=== PATIENT | female | born 1980 | race American Indian/Alaskan Native ===

== ENCOUNTER 2017-01-04 10:04 | Outpatient (CLI) | payer MEDICAID, OTHER ==
[2017-01-04 11:14] VITALS: BP 128/75
[2017-01-04] MEDS ORDERED: VISTARIL PO NR (11:22)
== END 2017-01-04 11:50 | disposition home or self-care (01) ==
LOC: TRG 10:04 → LD 10:05 → TRG 11:50
PROVIDERS: ATTEND Obstetrics & Gynecology Gynecology
DX: O09.523 Supervision of elderly multigravida, third trimester (principal); O47.1 False labor at or after 37 completed weeks of gestation; Z3A.38 38 weeks gestation of pregnancy
CPT/HCPCS: Q0177

== ENCOUNTER 2017-01-21 08:27 | Inpatient (IN) | payer OTHER ==
--- NOTE | 2017-01-21 09:02 | History and Physical Report ---
History of Present Illness Date of examination: 01/21/17 Date of admission: 01/21/17 08:27 Chief complaint: Here for induction of labor History of present illness: 36-year-old at 41+2 weeks presents for induction of labor, she is a [facility] patient. She is GBS positive. course complicated by elevated 1 hour GTT, patient no show for 3 hour GTT. She has a history of delivering large babies, her last delivery was of a 9 lbs. 9 oz. infant. I have an oral history from the clinic of ultrasound week ago showing a ~ 7 pound . No official report available. 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 denies: smoking, alcohol abuse, prescription drug abuse, IV drug use - Obstetrical History Expected Date of Delivery: 01/12/17 Actual Gestation: 41 Week(s) 2 Day(s) : 11 Para: 10 Number of Living Children: 9 (s/p IUFD) Medications and Allergies Allergies Allergy/AdvReac Type Severity Reaction Status Date / Time morphine Allergy Itching Verified 11/28/15 21:28 Home Medications Medication Instructions Recorded Confirmed Last Taken Type Ferrous Sulfate [Feosol 325 MG tab] 325 mg PO BID #60 tablet 12/01/15 Unknown Rx Ibuprofen [Motrin 600 MG tab] 600 mg PO Q6H #30 tablet 12/01/15 Unknown Rx Vit-Fe Fumar-FA [ 1 each PO QDAY #30 tablet 12/01/15 Unknown Rx Vitamin] Review of Systems Constitutional: no fever, no chills, no night sweats, no fatigue Cardiovascular: no chest pain, no orthopnea, no syncope, no lightheadedness, no shortness of breath, no dyspnea on exertion, no paroxysmal nocturnal dyspnea, no high blood pressure Respiratory: no excessive sputum, no shortness of breath, no dyspnea on exertion Gastrointestinal: abdominal pain, no nausea, no vomiting, no diarrhea, no hematemesis, no heartburn Genitourinary: contractions, no vaginal bleeding, no vaginal discharge, no leakage of fluid - Physical Exam Cardiovascular: Regular rate, Normal S1, Normal S2 Lungs: Positive: Clear to auscultation, Normal air movement Abdomen: Positive: normal appearance, soft. Negative: distention, tenderness, guarding, rigidity Genitourinary (Female): Positive: normal external genitalia Vulva: both: normal Uterus: Positive: enlarged (Limited due to Habitus). Negative: tender Adnexa: both: normal Extremities: Positive: normal - Obstetrical FHR: category 1 Cervical Dilatation: 5 Cervical Effacement Percentage: 80 station: -3 Results All other labs normal. Assessment and Plan A: 36-year-old at 41+2 wks in active labor -Cat 1 tracing P: -Admit -Obtain growth scan -Epidural when necessary -Disposition after result - Patient Problems (1) 41 weeks gestation of Current Visit: Yes Status: Acute (2) Grand multipara in labor Current Visit: Yes Status: Acute Qualifiers: Trimester: T (3) Non-compliance with treatment Current Visit: Yes Status: Acute
[2017-01-21] MEDS ORDERED: METHERGINE IM ONE (10:00)
[2017-01-21] MEDS ORDERED: ePHEDrine SULFATE IV PRN (10:00)
[2017-01-21] MEDS ORDERED: PITOCin/NS 30 UNIT/500ML 30 UNITS/500 ML BAG IV SCH (10:00)
[2017-01-21] MEDS ORDERED: MINERAL OIL PO PRN (10:00)
[2017-01-21] MEDS ORDERED: BRETHINE SUB-Q PRN (10:00)
[2017-01-21] MEDS ORDERED: PITOCin/NS 20 UNIT/1000ML DRIP 20 UNITS/1,000 ML BAG IV SCH ×2 (10:00→13:00)
[2017-01-21] MEDS ORDERED: CYTOTEC ONE (10:00)
[2017-01-21] MEDS ORDERED: PHENERGAN PO PRN ×2 (10:00→12:26)
[2017-01-21] MEDS ORDERED: POLYCILLIN/NS 2 GM/100 ML 2 GM/100 ML BAG IV ONE (10:00)
[2017-01-21] MEDS ORDERED: BRETHINE IVP PRN (10:00)
[2017-01-21] MEDS ORDERED: ZOFRAN IV PRN ×2 (10:00→12:26)
[2017-01-21] MEDS ORDERED: XYLOCAINE 2% INFILTRATI ONE (10:00)
[2017-01-21] MEDS ORDERED: LACTATED RINGERS 1,000 ML IV SCH (10:00)
[2017-01-21 10:11] LABS: Hematocrit 34.7 % (30.3-42.9); Hemoglobin 11.3 gm/dl (10.1-14.3); Mean Corpuscular HGB Conc 33 % (30-34); Mean Corpuscular Volume 75 fl (79-97); Platelet Count 240 K/mm3 (140-440); Red Cell Distribution Width 18.8 % (13.2-15.2); White Blood Count 10.8 K/mm3 (4.5-11.0)
[2017-01-21] MEDS: PITOCin/NS 30 UNIT/500ML 30 UNITS/500 ML BAG IV SCH ×2 (10:22→11:22)
[2017-01-21 10:44] LABS: Mean Corpuscular Hemoglobin 25 pg (28-32)
--- NOTE | 2017-01-21 11:28 | Ultrasound Report ---
OB ULTRASOUND History: Macrosomia, well being. Technique: Transabdominal ultrasound with Doppler interrogation. Gestation: Single Position: Cephalic Amniotic Fluid: Normal CHHAYA = 17.3 cm Heart Rate: 137 BPM BPD: 8.9 cm = 35 w 6 d HC: 33.7 cm = 38 w 5 d AC: 34.8 cm = 38 w 5 d FL: 7.2 cm = 37 w 0 d HC/AC Ratio: 0.97 Cephalic Index: 81.8 Estimated Weight: 3357 grams Clinical age = 41 w 2 d EDC: 01/12/17 US Gest. Age = 37 w 4 d EDC: 02/07/17
[2017-01-21] MEDS ORDERED: SUBLIMAZE ONE (11:50)
[2017-01-21] MEDS ORDERED: CYTOTEC VG ONE (12:00)
--- NOTE | 2017-01-21 12:24 | Procedure Note ---
OB Delivery Note - Delivery Date of Delivery: 01/21/17 Surgeon: RUBÉN GERMAIN Estimated blood loss: 300cc - Vaginal Delivery presentation: vertex Delivery position: OA Intrapartum events: meconium, precipitous labor- <3hr Delivery induction: none Delivery monitor: external FHT, external uterine Route of delivery: Delivery placenta: spontaneous Delivery cord: 3 umbilical vessels Episiotomy: none Delivery laceration: 1st degree (not bleeding, not repaired per maternal request ) Anesthesia: none - A at 1 minute: 8 at 5 minutes: 9 Gender: Female (time of delivery 1202, infant weight 7 lbs. 14 oz. or 3567 g)
[2017-01-21] MEDS ORDERED: CYTOTEC PR ONE (12:26)
[2017-01-21] MEDS ORDERED: LANSINOH TP PRN (12:26)
[2017-01-21] MEDS ORDERED: TYLENOL PO PRN (12:26)
[2017-01-21] MEDS ORDERED: METHERGINE IM PRN (12:26)
[2017-01-21] MEDS ORDERED: MILK OF MAGNESIA PO PRN (12:26)
[2017-01-21] MEDS ORDERED: DULCOLAX PR PRN (12:26)
[2017-01-21] MEDS ORDERED: BENADRYL PO PRN (12:26)
[2017-01-21] MEDS ORDERED: TUCKS PAD TP PRN (12:26)
[2017-01-21] MEDS ORDERED: ANUCORT-HC PR PRN (12:26)
[2017-01-21] MEDS ORDERED: PHENERGAN PR PRN (12:26)
[2017-01-21] MEDS ORDERED: SENOKOT S PO SCH (13:00)
[2017-01-21] MEDS ORDERED: MOTRIN PO SCH (13:00)
[2017-01-21] MEDS ORDERED: SODIUM CHLORIDE FLUSH SYRINGE 10 ML IV NR (13:00)
[2017-01-21] MEDS ORDERED: POLYCILLIN/NS 1 GM/50 ML 1 GM/50 ML BAG IV SCH (14:00)
[2017-01-21] MEDS: NORCO 5/325 PO PRN ×2 (15:33→21:35)
[2017-01-21] MEDS: MOTRIN PO SCH ×2 (15:43→21:35)
[2017-01-21] MEDS: FEOSOL PO SCH (21:34)
[2017-01-21] MEDS: COLACE PO SCH (21:35)
[2017-01-22 01:18] LABS: Hematocrit 29.5 % (30.3-42.9); Hemoglobin 9.6 gm/dl (10.1-14.3)
[2017-01-22] MEDS ORDERED: BOOSTRIX IM ONE (06:00)
[2017-01-22] MEDS: MOTRIN PO SCH ×2 (06:01→17:03)
--- NOTE | 2017-01-22 06:34 | Progress Note ---
Assessment and Plan PPD# 1 s/p -Doing well P: -Continue routine care -Anticipate discharge in 24-48 hours - Patient Problems (1) 41 weeks gestation of Current Visit: Yes Status: Acute (2) Grand multipara in labor Current Visit: Yes Status: Acute Qualifiers: Trimester: T (3) Non-compliance with treatment Current Visit: Yes Status: Acute Subjective - Subjective Date of service: 01/22/17 Principal diagnosis: PPD# 1 Interval history: Patient seen and examined, stable doing well no issues Patient reports: appetite normal, voiding normally, pain well controlled, ambulating normally, no dizzy ambulation, no nauseated : doing well Objective - Vital Signs Latest vital signs: Vital Signs Temp Pulse Resp BP BP Pulse Ox 01/22/17 00:20 97.6 F 61 16 109/65 01/21/17 20:55 97.6 F 50 L 114/71 01/21/17 17:00 98.2 F 86 16 126/73 93 01/21/17 15:43 20 01/21/17 15:33 20 01/21/17 14:15 98.8 F 76 20 127/83 01/21/17 13:56 72 135/76 01/21/17 13:44 75 130/60 01/21/17 13:29 57 L 18 122/62 122/62 01/21/17 13:22 68 18 125/72 125/72 01/21/17 12:59 80 127/83 01/21/17 12:58 80 18 127/83 01/21/17 12:44 80 18 131/86 131/86 01/21/17 12:29 71 113/66 01/21/17 10:29 98.5 F 01/21/17 09:52 123/79 01/21/17 09:34 83 123/79 Intake and Output 01/21/17 01/21/17 01/22/17 14:59 22:59 06:59 Intake Total 120 180 Balance 120 180 Intake: Intake, Free Water 120 180 Other: # Voids Void 1 800 Weight 105.687 kg Estimated Blood Loss 300 Patient Weight 01/22/17 06:59 Weight 105.687 kg - Exam Abdomen: Present: normal appearance, soft. Absent: distention, tenderness, guarding Uterus: Present: fundal height below umbilicus. Absent: tenderness Extremities: Present: normal - Labs Labs: Abnormal lab results 01/21/17 01/22/17 Range/Units 09:50 00:39 Hgb 9.6 L (10.1-14.3) gm/dl Hct 29.5 L (30.3-42.9) % MCV 75 L (79-97) fl MCH 25 L (28-32) pg RDW 18.8 H (13.2-15.2) %
--- NOTE | 2017-01-22 06:35 | Discharge Summary ---
Providers - Providers Date of Admission: 01/21/17 08:27 Date of discharge: 01/23/17 Attending physician: RUBÉN GERMAIN Primary care physician: RUBÉN GERMAIN Hospitalization Reason for admission: active labor, induction of labor Delivery: Episiotomy: none Laceration: 1st degree Other procedures: none complications: none Discharge diagnosis: IUP at term delivered baby: female Condition at discharge: Good Disposition: DC-01 TO HOME OR SELFCARE - Discharge Diagnoses (1) (normal spontaneous vaginal delivery) Status: Acute (2) 41 weeks gestation of Status: Acute (3) Grand multipara in labor Status: Acute Qualifiers: Trimester: T (4) Non-compliance with treatment Status: Acute Plan - Discharge Medications Prescriptions: Ibuprofen [Motrin 600 MG tab] 600 mg PO Q8H PRN #30 tablet PRN Reason: Pain Multivitamin with Iron [Multivitamins with Iron] 1 each PO DAILY #30 tablet - Provider Discharge Summary Activity: no sex for 6 weeks, no heavy lifting 4 weeks, no strenuous exercise Diet: routine Additional instructions: [] Smoking cessation referral if applicable(refer to patient education folder for contact #) [] Refer to [facility]'s [facility] Booklet Call your doctor immediately for: * Fever > 100.5 * Heavy vaginal bleeding ( >1 pad per hour) * Severe persistent headache * Shortness of breath * Reddened, hot, painful area to leg or breast * Drainage or odor from incision. * Keep incision clean and dry at all times and follow doctor's instructions regarding bathing/showering - Follow up plan Follow up: RUBÉN GERMAIN MD [Primary Care Provider] - 6 Weeks
[2017-01-22] MEDS: COLACE PO SCH ×2 (09:16→22:34)
[2017-01-22] MEDS: FEOSOL PO SCH ×2 (09:17→22:34)
[2017-01-22] MEDS: PRENATAL VITAMIN PO SCH (09:17)
[2017-01-22] MEDS ORDERED: Fluarix Quad 2017-2018(36 MOS+) IM ONE (12:00)
[2017-01-22] MEDS: NORCO 5/325 PO PRN (22:34)
[2017-01-23] MEDS: MOTRIN PO SCH ×2 (02:15→09:30)
[2017-01-23] MEDS: PRENATAL VITAMIN PO SCH (09:30)
[2017-01-23] MEDS: FEOSOL PO SCH (09:30)
[2017-01-23] MEDS: COLACE PO SCH (09:30)
[2017-01-23] MEDS: NORCO 5/325 PO PRN (09:31)
[2017-01-23 14:13] VITALS: BP 130/79
== END 2017-01-23 15:30 | disposition home or self-care (01) | DRG 775 ==
LOC: LD 08:27 → OB 14:14
PROVIDERS: ADMIT Obstetrics & Gynecology Gynecology; ATTEND Obstetrics & Gynecology Gynecology
PROC: 10E0XZZ Delivery of Products of Conception, External Approach (ICD-10-PCS; principal; 2017-01-21)
PROC: 3E0234Z Introduction of Serum, Toxoid and Vaccine into Muscle, Percutaneous Approach (ICD-10-PCS; 2017-01-22)
DX: O77.0 Labor and delivery complicated by meconium in amniotic fluid (principal); O62.3 Precipitate labor; O48.0 Post-term pregnancy; Z3A.41 41 weeks gestation of pregnancy; Z37.0 Single live birth; O70.0 First degree perineal laceration during delivery; Z91.19 Patient's noncompliance with other medical treatment and regimen; O99.824 Streptococcus B carrier state complicating childbirth; Z23 Encounter for immunization
CPT/HCPCS: 36415; 76816; 85014; 85018; 85027; 86592; 86706; 86762; 86850; 86900; 86901; 90471; 90715; J0290; J2210; J2590; J3010; J7120; Q0169

== ENCOUNTER 2017-03-09 11:20 | Day surgery (SDC) | payer OTHER ==
[~2017-03-09 11:20] MED LIST: LACTATED RINGERS 1,000 ML IV SCH; PEPCID PO NR; REGLAN PO NR; VERSED IV NR
--- NOTE | 2017-03-09 12:23 | Short Stay Summary ---
Short Stay Documentation Date of service: 03/09/17 Narrative H&P: Pt is a 36yo BF S/P 01/21/17 presents for permanent sterilization. No complaints. - History Principal diagnosis: Desires permanent sterilization H&P: obtained from office Past Medical History: No medical history Past Surgical History: Other (breast reduction) Social history: no significant social history, single - Allergies and Medications Current Medications: Allergies morphine Allergy (Verified 11/28/15 21:28) Itching Home Medications Medication Instructions Recorded Confirmed Last Taken Type No Known Home Medications [No 03/06/17 03/06/17 Unknown History Reported Home Medications] Active Medications Famotidine (Pepcid) 20 mg PO PREOP NR Stop: 03/09/17 15:00 Lactated Ringer's (Lactated Ringers) 1,000 mls @ 75 mls/hr IV DIRECT DAVID Cefazolin Sodium (Ancef/Sterile Water 2 Gm/20 Ml) 2 gm in 20 mls @ 80 mls/hr IV PREOP NR PRN Reason: Protocol Metoclopramide HCl (Reglan) 10 mg PO PREOP NR Stop: 03/09/17 15:00 Midazolam HCl (Versed) 2 mg IV PREOP NR Stop: 03/09/17 23:59 - Physical exam General appearance: no acute distress Integumentary: no rash HEENT: Atraumatic Lungs: Clear to auscultation Breasts: deferred Heart: Regular rate Gastrointestinal: normal Female Genitourinary: deferred Rectal Exam: deferred Extremities: no ischemia, No edema Neurological: Normal gait, Normal speech - Brief post op/procedure progress note Date of procedure: 03/09/17 Pre-op diagnosis: Desires permanent sterilization Post-op diagnosis: same Procedure: Laproscopic Bilateral Tubal Ligation Anesthesia: GETA Findings: Normal uterus. Normal tubes and ovaries bilaterally. Surgeon: MILDRED LAINEZ Estimated blood loss: minimal Pathology: none Condition: stable - Hospital course Hospital course: Unremarkable. - Disposition Condition at discharge: Good Disposition: DC-01 TO HOME OR SELFCARE - Discharge Diagnoses (1) Consultation for sterilization Status: Resolved Short Stay Discharge Plan Activity: no restrictions Diet: regular Wound: open to air, keep clean and dry Follow up with: RUBÉN GERMAIN MD [Primary Care Provider] - 7 Days MILDRED LAINEZ MD [Staff Physician] - 14 Days Prescriptions: HYDROcodone/APAP 5-325 [[place] 5/325] 1 each PO Q6HR PRN #20 tablet PRN Reason: Pain
--- NOTE | 2017-03-09 12:58 | Anesthesia Consultation ---
Anesthesia Consult and Med Hx Date of service: 03/09/17 - Airway Anesthetic Teeth Evaluation: Good, Partials Mental/Hyoid Distance: Adequate Mallampati Class: Class II Intubation Access Assessment: Good - Pulmonary Exam CTA: Yes - Cardiac Exam Cardiac Exam: RRR - Pre-Operative Health Status ASA Pre-Surgery Classification: ASA1 Proposed Anesthetic Plan: General - Pre-Anesthesia Comment Pre-Anesthesia Comments: one lower molar is broken - Pulmonary Hx Asthma: No COPD: No Hx Pneumonia: No - Cardiovascular System Hx Hypertension: No - Central Nervous System Hx Seizures: No Hx Psychiatric Problems: No - Endocrine Hx Renal Disease: No Hx End Stage Renal Disease: No Hx Hypothyroidism: No Hx Hyperthyroidism: No - Hematic Hx Anemia: No Hx Sickle Cell Disease: No - Other Systems Hx Alcohol Use: No Hx Cancer: No
--- NOTE | 2017-03-09 12:58 | Anesthesia Day of Surgery ---
Anesthesia Day of Surgery - Day of Surgery Patient Examined: Yes Patient H&P Reviewed: Yes Patient is NPO: Yes
[2017-03-09] MEDS ORDERED: DILAUDID IV PRN (12:59)
[2017-03-09] MEDS ORDERED: ZOFRAN IV PRN (12:59)
[2017-03-09] MEDS ORDERED: ANCEF/STERILE WATER 2 GM/20 ML 2 GM/20 ML SYRINGE IV NR (13:00)
[2017-03-09] MEDS ORDERED: PERCOCET 5/325 PO PRN (13:02)
[2017-03-09 13:29] LABS: Hemoglobin 11.4 gm/dl (10.1-14.3); Mean Corpuscular HGB Conc 32 % (30-34); Mean Corpuscular Volume 75 fl (79-97); Platelet Count 238 K/mm3 (140-440); Red Blood Count 4.78 M/mm3 (3.65-5.03); White Blood Count 7.7 K/mm3 (4.5-11.0)
[2017-03-09 13:30] LABS: Mean Corpuscular Hemoglobin 24 pg (28-32); Red Cell Distribution Width 20.1 % (13.2-15.2)
[2017-03-09] MEDS ORDERED: MARCAINE 0.5% 30 ML INFILTRATI ONE (14:27)
[2017-03-09] MEDS ORDERED: DILAUDID ONE (14:30)
[2017-03-09] MEDS ORDERED: XYLOCAINE MPF 2% ONE (14:30)
[2017-03-09] MEDS ORDERED: ZEMURON IV ONE (14:30)
[2017-03-09] MEDS ORDERED: DIPRIVAN 10 MG/ML IV ONE (14:30)
[2017-03-09] MEDS ORDERED: DECADRON ONE (14:55)
[2017-03-09] MEDS ORDERED: ZOFRAN ONE (14:55)
[2017-03-09] MEDS ORDERED: ROBINUL ONE (14:58)
[2017-03-09] MEDS ORDERED: NEOSTIGMINE ONE (14:58)
[2017-03-09] MEDS ORDERED: TORADOL ONE (15:04)
[2017-03-09] MEDS ORDERED: MARCAINE 0.5% INFILTRATI ONE (15:07)
[2017-03-09] MEDS ORDERED: NACL 0.9% IR ONE (15:08)
--- NOTE | 2017-03-09 15:34 | Operative Report ---
Operative Report Operative Report: PREOPERATIVE DIAGNOSIS: Desires permanent sterilization POSTOPERATIVE DIAGNOSIS: Same OPERATIVE PROCEDURE: Laparoscopic bilateral tubal ligation. SURGEON: Cam Phelps MD ANESTHESIA: Gen. endotracheal intubation ANESTHESIOLOGIST: Dr. Macias ESTIMATED BLOOD LOSS: 10 mL's FINDINGS: Normal uterus. Normal tubes and ovaries bilaterally. COMPLICATIONS: None COUNTS: Correct x3. PROCEDURE: After the patient was correctly identified and after general anesthesia was administered, the patient was prepped and draped in usual sterile fashion and placed in dorsal lithotomy position. First, the bladder was emptied using a straight catheter. Next, a speculum was placed in the vaginal vault and the anterior lip of the cervix was grasped using a single- tooth tenaculum. The uterine manipulator was then placed and the tenaculum and speculum were removed. Attention was then turned to the abdomen where first a periumbilical incision was made using a skin knife, and the Optiview trocar was inserted under direct visualization. After an adequate amount of abdominal insufflation, visualization of the pelvic organs found the uterus to be normal, and the tubes and ovaries to be normal bilaterally. Next, the left fallopian tube was grasped using the Kleppingers, and after identifying the fimbriated end of the left tube, this tube was cauterized in 3 continuous [address] along the proximal portion of the left tube. The same procedure was performed on the right fallopian tube after first identifying the fimbriated end of the right tube. This tube was also cauterized in 3 continuous places along the proximal portion of the right tube. At this point, the procedure was then considered complete. All instruments were removed from the abdomen. The abdomen was deflated and the periumbilical incision was closed using 0 Vicryl suture in a [id number] configuration on the fascia, followed by 4-0 Monocryl suture in subcuticular fashion on the skin. The incision was also infiltrated using 0.5% Marcaine solution. The uterine manipulator was removed. The patient tolerated the procedure well and was transferred to recovery room stable condition.
[2017-03-09 16:38] VITALS: BP 129/87
[2017-03-10] MEDS ORDERED: DIPRIVAN 10 MG/ML IV ONE (07:22)
[2017-03-10] MEDS ORDERED: SUBLIMAZE ONE (07:57)
== END 2017-03-09 17:00 | disposition home or self-care (01) ==
LOC: OR 11:20
PROVIDERS: ATTEND Obstetrics & Gynecology
DX: Z30.2 Encounter for sterilization (principal)
CPT/HCPCS: 36415; 58670; 81025; 85027; J0690; J1100; J1170; J1885; J2250; J2405; J2704; J2710; J7120; J3010

== ENCOUNTER 2019-05-03 17:21 | Emergency (ER) | payer SELFPAY ==
[2019-05-03] MEDS ORDERED: ASPIRIN 325 MG TAB PO ONE (17:57)
[2019-05-03] MEDS ORDERED: SODIUM CHLORIDE 0.9% 1000 ML 1,000 ML IV ONE ×2 (18:08→18:59)
[2019-05-03] MEDS ORDERED: HYDROmorphone 1 MG/1 ML INJ IV ONE ×3 (18:08→20:56)
[2019-05-03] MEDS ORDERED: ONDANSETRON 4 MG/2 ML INJ IV ONE (18:08)
--- NOTE | 2019-05-03 18:14 | Emergency Department Report ---
ED Chest Pain HPI - General Chief Complaint: Chest Pain Stated Complaint: CHEST PX Time Seen by Provider: 05/03/19 18:02 Source: patient, family Mode of arrival: Wheelchair Limitations: No Limitations - History of Present Illness Initial Comments: 38-year-old female with a past medical history of anxiety, breast reduction, and tubal ligation presents to the hospital complaining of chest pain, nausea, vomiting, and diarrhea that started today. Patient states she started to have left-sided sharp chest pain that it is rated 10/10 in intensity that is constant, worse with movement, palpation, and deep inspiration. Mild shortness of breath noted. Patient had 4 episodes of nonbloody/nonbilious vomiting and several episodes of nonbloody watery stool that was not black in color. Patient denies fevers, dysuria, recent travel, calf tenderness, hormone therapy, history of PE/DVT. Severity scale (0 -10): 10 - Related Data Previous Rx's Medication Instructions Recorded Last Taken Type HYDROcodone/APAP 5-325 [[place] 1 each PO Q6HR PRN #20 tablet 03/09/17 Unknown Rx 5/325] Allergies Allergy/AdvReac Type Severity Reaction Status Date / Time morphine Allergy Itching Verified 05/03/19 17:28 Heart Score - HEART Score History: Slightly suspicious EKG: Normal Age: < 45 Risk factors: 1-2 risk factors Troponin: < normal limit HEART Score: 1 ED Review of Systems ROS: Stated complaint: CHEST PX Other details as noted in HPI Comment: All other systems reviewed and negative ED Past Medical Hx - Past Medical History Previous Medical History?: Yes Hx Hypertension: No Hx Congestive Heart Failure: No Hx Diabetes: No Hx Deep Vein Thrombosis: No Hx Renal Disease: No Hx Sickle Cell Disease: No Hx Seizures: No Hx Asthma: No Hx COPD: No Hx HIV: No Additional medical history: anxiety - Surgical History Past Surgical History?: Yes Hx Breast Surgery: Yes (reduction) Additional Surgical History: Tubal ligation - Social History Smoking Status: Never Smoker Substance Use Type: None - Medications Home Medications: Home Medications Medication Instructions Recorded Confirmed Last Taken Type HYDROcodone/APAP 5-325 [[place] 1 each PO Q6HR PRN #20 tablet 03/09/17 Unknown Rx 5/325] ED Physical Exam - General Limitations: No Limitations - Other Other exam information: General: No acute distress Head: Atraumatic Eyes: normal appearance ENT: Dry mucous membrane Neck: Normal appearance, no midline tenderness Chest: Clear to auscultation bilaterally. Reproducible left chest wall tenderness CV: Regular rate and rhythm Abdomen: Soft, normal bowel sounds, lower abdominal tenderness to palpation, left abd tenderness. nondistended, no rebound or guarding Back: Normal inspection Extremity: Normal inspection infection, full range of motion Neuro: Alert O x 3, no facial asymmetry, speech clear, no gross motor sensory deficit Psych: Appropriate behavior Skin: No rash ED Course Vital Signs 05/03/19 05/03/19 05/03/19 17:50 17:51 18:12 Temperature 97.5 F L Pulse Rate 84 82 87 Respiratory 15 15 23 Rate Blood Pressure Blood Pressure 132/87 [right arm] O2 Sat by Pulse 98 Oximetry 05/03/19 05/03/19 05/03/19 18:16 19:00 20:00 Temperature Pulse Rate 80 83 102 H Respiratory 40 H 27 H 25 H Rate Blood Pressure 138/87 102/63 Blood Pressure [right arm] O2 Sat by Pulse 96 95 94 Oximetry 05/03/19 05/03/19 21:00 21:27 Temperature 98.2 F Pulse Rate 113 H Respiratory 24 Rate Blood Pressure 102/63 Blood Pressure [right arm] O2 Sat by Pulse 95 Oximetry - Reevaluation(s) Reevaluation #1: 05/03/19 21:59 pt developed itching after toradol. solumedrol and benadryl provided - Consultations Consultation #1: 05/03/19 20:22 called [facility] transfer service for urology consult for possible transfer. Unfortunately we do not have urology coverage today 05/03/19 20:43 case d/w Dr Hernandez Uromikel at [facility] who has accepted pt but based on bed availability. ER to ER transfer may also be a possibility. request blood, urine cultures (UA pending) and IV rocephin BRADY score - Brady Score Age > 65: (0) No Aspirin use within the Past 7 Days: (0) No 3 or more CAD Risk Factors: (0) No 2 or more Angina events in past 24 hrs: (0) No Known CAD with more than 50% Stenosis: (0) No Elevated Cardiac Markers: (0) No ST Deviation Greater than 0.5mm: (0) No BRADY Score: 0 ED Medical Decision Making - Lab Data Result diagrams: 05/03/19 18:17 05/03/19 18:17 Lab Results 05/03/19 05/03/19 05/03/19 Range/Units 18:17 18:17 18:17 WBC 15.1 H (4.5-11.0) K/mm3 RBC 4.92 (3.65-5.03) M/mm3 Hgb 11.2 (10.1-14.3) gm/dl Hct 35.4 (30.3-42.9) % MCV 72 L (79-97) fl MCH 23 L (28-32) pg MCHC 32 (30-34) % RDW 18.4 H (13.2-15.2) % Plt Count 267 (140-440) K/mm3 Lymph % (Auto) 8.5 L (13.4-35.0) % [place] % (Auto) 2.8 (0.0-7.3) % Eos % (Auto) 0.2 (0.0-4.3) % Baso % (Auto) 0.3 (0.0-1.8) % Lymph # 1.3 (1.2-5.4) K/mm3 [place] # 0.4 (0.0-0.8) K/mm3 Eos # 0.0 (0.0-0.4) K/mm3 Baso # 0.0 (0.0-0.1) K/mm3 Seg Neutrophils % 88.2 H (40.0-70.0) % Seg Neutrophils # 13.3 H (1.8-7.7) K/mm3 PT 13.1 (12.2-14.9) Sec. INR 0.98 (0.87-1.13) D-Dimer 574.32 H (0-234) ng/mlDDU Sodium 144 (137-145) mmol/L Potassium 4.5 (3.6-5.0) mmol/L Chloride 107.5 H (98-107) mmol/L Carbon Dioxide 22 (22-30) mmol/L Anion Gap 19 mmol/L BUN 17 (7-17) mg/dL Creatinine 1.8 H (0.7-1.2) mg/dL Estimated GFR 38 ml/min BUN/Creatinine Ratio 9 % Glucose 126 H (65-100) mg/dL POC Glucose (70-105) Calcium 9.5 (8.4-10.2) mg/dL Total Bilirubin (0.1-1.2) mg/dL Direct Bilirubin (0-0.2) mg/dL Indirect Bilirubin mg/dL AST (5-40) units/L ALT (7-56) units/L Alkaline Phosphatase (35-129) units/L Troponin T < 0.010 (0.00-0.029) ng/mL Total Protein (6.3-8.2) g/dL Albumin (3.9-5) g/dL Albumin/Globulin Ratio % Lipase (13-60) units/L HCG, Qual (Negative) Urine Color (Yellow) Urine Turbidity (Clear) Urine pH (5.0-7.0) Ur Specific [place] (1.003-1.030) Urine Protein (Negative) mg/dL Urine Glucose (UA) (Negative) mg/dL Urine Ketones (Negative) mg/dL Urine Blood (Negative) Urine Nitrite (Negative) Urine Bilirubin (Negative) Urine Urobilinogen (<2.0) mg/dL Ur Leukocyte Esterase (Negative) Urine WBC (Auto) (0.0-6.0) /HPF Urine RBC (Auto) (0.0-6.0) /HPF U Epithel Cells (Auto) (0-13.0) /HPF Urine Bacteria (Auto) (Negative) /HPF Urine Mucus /HPF 05/03/19 05/03/19 05/03/19 Range/Units 18:17 18:17 18:26 WBC (4.5-11.0) K/mm3 RBC (3.65-5.03) M/mm3 Hgb (10.1-14.3) gm/dl Hct (30.3-42.9) % MCV (79-97) fl MCH (28-32) pg MCHC (30-34) % RDW (13.2-15.2) % Plt Count (140-440) K/mm3 Lymph % (Auto) (13.4-35.0) % [place] % (Auto) (0.0-7.3) % Eos % (Auto) (0.0-4.3) % Baso % (Auto) (0.0-1.8) % Lymph # (1.2-5.4) K/mm3 [place] # (0.0-0.8) K/mm3 Eos # (0.0-0.4) K/mm3 Baso # (0.0-0.1) K/mm3 Seg Neutrophils % (40.0-70.0) % Seg Neutrophils # (1.8-7.7) K/mm3 PT (12.2-14.9) Sec. INR (0.87-1.13) D-Dimer (0-234) ng/mlDDU Sodium (137-145) mmol/L Potassium (3.6-5.0) mmol/L Chloride (98-107) mmol/L Carbon Dioxide (22-30) mmol/L Anion Gap mmol/L BUN (7-17) mg/dL Creatinine (0.7-1.2) mg/dL Estimated GFR ml/min BUN/Creatinine Ratio % Glucose (65-100) mg/dL POC Glucose 116 H (70-105) Calcium (8.4-10.2) mg/dL Total Bilirubin 0.30 (0.1-1.2) mg/dL Direct Bilirubin < 0.2 (0-0.2) mg/dL Indirect Bilirubin 0.1 mg/dL AST 23 (5-40) units/L ALT 12 (7-56) units/L Alkaline Phosphatase 113 (35-129) units/L Troponin T (0.00-0.029) ng/mL Total Protein 8.6 H (6.3-8.2) g/dL Albumin 4.1 (3.9-5) g/dL Albumin/Globulin Ratio 0.9 % Lipase 39 (13-60) units/L HCG, Qual Negative (Negative) Urine Color (Yellow) Urine Turbidity (Clear) Urine pH (5.0-7.0) Ur Specific [place] (1.003-1.030) Urine Protein (Negative) mg/dL Urine Glucose (UA) (Negative) mg/dL Urine Ketones (Negative) mg/dL Urine Blood (Negative) Urine Nitrite (Negative) Urine Bilirubin (Negative) Urine Urobilinogen (<2.0) mg/dL Ur Leukocyte Esterase (Negative) Urine WBC (Auto) (0.0-6.0) /HPF Urine RBC (Auto) (0.0-6.0) /HPF U Epithel Cells (Auto) (0-13.0) /HPF Urine Bacteria (Auto) (Negative) /HPF Urine Mucus /HPF 05/03/ Range/Units 20:18 WBC (4.5-11.0) K/mm3 RBC (3.65-5.03) M/mm3 Hgb (10.1-14.3) gm/dl Hct (30.3-42.9) % MCV (79-97) fl MCH (28-32) pg MCHC (30-34) % RDW (13.2-15.2) % Plt Count (140-440) K/mm3 Lymph % (Auto) (13.4-35.0) % [place] % (Auto) (0.0-7.3) % Eos % (Auto) (0.0-4.3) % Baso % (Auto) (0.0-1.8) % Lymph # (1.2-5.4) K/mm3 [place] # (0.0-0.8) K/mm3 Eos # (0.0-0.4) K/mm3 Baso # (0.0-0.1) K/mm3 Seg Neutrophils % (40.0-70.0) % Seg Neutrophils # (1.8-7.7) K/mm3 PT (12.2-14.9) Sec. INR (0.87-1.13) D-Dimer (0-234) ng/mlDDU Sodium (137-145) mmol/L Potassium (3.6-5.0) mmol/L Chloride (98-107) mmol/L Carbon Dioxide (22-30) mmol/L Anion Gap mmol/L BUN (7-17) mg/dL Creatinine (0.7-1.2) mg/dL Estimated GFR ml/min BUN/Creatinine Ratio % Glucose (65-100) mg/dL POC Glucose (70-105) Calcium (8.4-10.2) mg/dL Total Bilirubin (0.1-1.2) mg/dL Direct Bilirubin (0-0.2) mg/dL Indirect Bilirubin mg/dL AST (5-40) units/L ALT (7-56) units/L Alkaline Phosphatase (35-129) units/L Troponin T (0.00-0.029) ng/mL Total Protein (6.3-8.2) g/dL Albumin (3.9-5) g/dL Albumin/Globulin Ratio % Lipase (13-60) units/L HCG, Qual (Negative) Urine Color Yellow (Yellow) Urine Turbidity Cloudy (Clear) Urine pH 7.0 (5.0-7.0) Ur Specific [place] 1.017 (1.003-1.030) Urine Protein 30 mg/dl (Negative) mg/dL Urine Glucose (UA) Neg (Negative) mg/dL Urine Ketones Neg (Negative) mg/dL Urine Blood Mod (Negative) Urine Nitrite Neg (Negative) Urine Bilirubin Neg (Negative) Urine Urobilinogen < 2.0 (<2.0) mg/dL Ur Leukocyte Esterase Lg (Negative) Urine WBC (Auto) > 182.0 H (0.0-6.0) /HPF Urine RBC (Auto) 79.0 (0.0-6.0) /HPF U Epithel Cells (Auto) 1.0 (0-13.0) /HPF Urine Bacteria (Auto) 2+ (Negative) /HPF Urine Mucus Few /HPF - EKG Data -: EKG Interpreted by In EKG shows normal: sinus rhythm, ST-T waves (no stemi) Rate: normal - Radiology Data Radiology results: report reviewed CT angio chest INDICATION / CLINICAL INFORMATION: MAIN: cp, sob, elevated ddimer 60ml Omni 350. TECHNIQUE: Precontrast bolus timing images were obtained followed by postcontrast axial and reformatted images. 3-plane MIP reconstructions were performed at an independent workstation by the technologist. All CT scans at this location are performed using CT dose reduction for ALARA by means of automated exposure control. COMPARISON: None available. FINDINGS: Enhancement of the pulmonary arteries is normal. No evidence of pulmonary embolus. No mediastinal adenopathy or pericardial effusion. No acute lung disease or pleural effusion. No acute skeletal abnormality. IMPRESSION: 1. No evidence of pulmonary embolus or acute lung disease. CT abdomen pelvis w con INDICATION / CLINICAL INFORMATION: MAIN: lower pain, n,v,d 60ml Omni 350. TECHNIQUE: All CT scans at this location are performed using CT dose reduction for ALARA by means of automated exposure control. COMPARISON: None available. FINDINGS: The gallbladder, liver, spleen and pancreas are normal. The right kidney is normal. There is marked left hydronephrosis and prominent perinephric stranding. The left ureter is dilated to the level of the urinary bladder where an 8 mm obstructing stone is seen at the ureterovesical junction. No retroperitoneal lymph node enlargement. No small bowel distention. Pelvis: The appendix is normal. No dependent fluid collections are seen in the pelvis. Skeletal structures are nonremarkable. IMPRESSION: 1. 8 mm left ureterovesical junction stone with marked left hydronephrosis. - Medical Decision Making ua + for infection persistant pain due to obstructing left stone plan to tx to [facility] for urology intervention since urology is not available here at [facility] on ER call. - Differential Diagnosis pulmonary embolism, gastroenteritis, renal colic, ectopic , divert Critical Care Time: No Critical care attestation.: If time is entered above; I have spent that time in minutes in the direct care of this critically ill patient, excluding procedure time. ED Disposition Clinical Impression: Hydronephrosis with renal and ureteral calculous obstruction, Left ureteral stone, UTI (urinary tract infection) Disposition: DC/TX-70 ANOTHER TYPE [facility]TH[facility] Is pt being admited?: No Condition: Stable Time of Disposition: 21:04 (Dr Hernandez/urology accepted pt [facility])
[2019-05-03 18:34] LABS: Basophils % (Auto) 0.3 % (0.0-1.8); Eosinophils % (Auto) 0.2 % (0.0-4.3); Hematocrit 35.4 % (30.3-42.9); Hemoglobin 11.2 gm/dl (10.1-14.3); Lymphocytes # (Auto) 1.3 K/mm3 (1.2-5.4); Lymphocytes % (Auto) 8.5 % (13.4-35.0); Mean Corpuscular HGB Conc 32 % (30-34); Mean Corpuscular Volume 72 fl (79-97); Monocytes # (Auto) 0.4 K/mm3 (0.0-0.8); Monocytes % (Auto) 2.8 % (0.0-7.3); Platelet Count 267 K/mm3 (140-440); Red Blood Count 4.92 M/mm3 (3.65-5.03); Red Cell Distribution Width 18.4 % (13.2-15.2)
[2019-05-03 18:47] LABS: Alanine Aminotransferase 12 units/L (7-56); Albumin 4.1 g/dL (3.9-5)
[2019-05-03 18:51] LABS: Bilirubin,Direct < 0.2 mg/dL (0-0.2); INR 0.98 (0.87-1.13)
[2019-05-03 18:52] LABS: BUN/Creatinine Ratio 9; Blood Urea Nitrogen 17 mg/dL (7-17); Calcium 9.5 mg/dL (8.4-10.2); Hemolysis Index 24
--- NOTE | 2019-05-03 19:41 | Cat Scan Report ---
CT angio chest INDICATION / CLINICAL INFORMATION: MAIN: cp, sob, elevated ddimer 60ml Omni 350. TECHNIQUE: Precontrast bolus timing images were obtained followed by postcontrast axial and reformatted images. 3-plane MIP reconstructions were performed at an independent workstation by the technologist. All CT scans at this location are performed using CT dose reduction for ALARA by means of automated exposure control. COMPARISON: None available. FINDINGS: Enhancement of the pulmonary arteries is normal. No evidence of pulmonary embolus. No mediastinal adenopathy or pericardial effusion. No acute lung disease or pleural effusion. No acute skeletal abnormality. IMPRESSION: 1. No evidence of pulmonary embolus or acute lung disease. Signer Name: Ozzie Mercedes MD Signed: 05/03/2019 7:36 PM Workstation Name: [id number]
--- NOTE | 2019-05-03 19:51 | Cat Scan Report ---
CT abdomen pelvis w con INDICATION / CLINICAL INFORMATION: MAIN: lower pain, n,v,d 60ml Omni 350. TECHNIQUE: All CT scans at this location are performed using CT dose reduction for ALARA by means of automated e xposure control. COMPARISON: None available. FINDINGS: The gallbladder, liver, spleen and pancreas are normal. The right kidney is normal. There is marked left hydronephrosis and prominent perinephric stranding. The left ureter is dilated t o the level of the urinary bladder where an 8 mm obstructing stone is seen at the ureterovesical junc tion. No retroperitoneal lymph node enlargement. No small bowel distention. Pelvis: The appendix is normal. No dependent fluid collections are seen in the pelvis. Skeletal structures are nonremarkable. IMPRESSION: 1. 8 mm left ureterovesical junction stone with marked left hydronephrosis. Signer Name: Ozzie Mercedes MD Signed: 05/03/2019 7:46 PM Workstation Name: [id number]
--- NOTE | 2019-05-03 20:07 | XRay Report ---
CHEST 1 VIEW INDICATION / CLINICAL INFORMATION: Chest Pain UPT. COMPARISON: None available. FINDINGS: SUPPORT DEVICES: None. HEART / MEDIASTINUM: No significant abnormality. LUNGS / PLEURA: No significant pulmonary or pleural abnormality. No pneumothorax. ADDITIONAL FINDINGS: No significant additional findings. IMPRESSION: No acute pulmonary or pleural abnormality Signer Name: Abisai Charles MD FACR Signed: 05/03/2019 8:03 PM Workstation Name: [id number]
[2019-05-03 20:46] LABS: Bacteria,Urine 2+ /HPF (Negative); Bilirubin,Urine NEG (Negative); Blood,Urine MOD (Negative); Color,Urine Yellow (Yellow); Mucus,Urine FEW /HPF; Urobilinogen,Urine < 2.0 mg/dL (<2.0); WBC,Urine > 182.0 /HPF (0.0-6.0)
[2019-05-03] MEDS ORDERED: cefTRIAXone/NS 1 GM/50 ML 1 GM/50 ML BAG IV ONE (20:51)
[2019-05-03] MEDS ORDERED: KETOROLAC 30 MG/1 ML INJ IV ONE (20:58)
[2019-05-03] MEDS ORDERED: diphenhydrAMINE 50 MG/ML VIAL IV ONE (21:59)
[2019-05-03] MEDS ORDERED: methylPREDNISolone Sod Succinate 125 MG/2 ML INJ IV ONE (21:59)
[2019-05-03 22:10] VITALS: BP 102/68
== END 2019-05-03 22:31 | disposition other institution (70) ==
LOC: ED 17:21
DX: N39.0 Urinary tract infection, site not specified (principal); N13.2 Hydronephrosis with renal and ureteral calculous obstruction; Z98.51 Tubal ligation status; Z88.6 Allergy status to analgesic agent
CPT/HCPCS: 36415; 71045; 71275; 74177; 80048; 80076; 81001; 82962; 83690; 84484; 84703; 85025; 85379; 85610; 87040; 87076; 87086; 87186; 93005; 93010; 96361; 96365; 96375; 96376; 99285; J0696; J1170; J1200; J1885; J2405; J2930; J7030; Q9967